=== PATIENT | female | born 1995 | race Caucasian/White ===

== ENCOUNTER 2016-11-29 11:53 | Emergency (ER) | payer SELFPAY ==
[~2016-11-29] VITALS: Ht 157.5 cm; Wt 48.2 kg
[~2016-11-29 11:53] MED LIST: REGLAN10 MG PO; TRAZODONE HCL50 MG PO
[2016-11-29 12:10] VITALS: BP 118/72
[2016-11-29] MEDS ORDERED: BUPROPION XL150 MG PO (13:53)
== END 2016-11-29 15:07 | disposition left against medical advice (07) ==
LOC: EME 11:53
DX: O99.89 Other specified diseases and conditions complicating pregnancy, childbirth and the puerperium (principal); M25.571 Pain in right ankle and joints of right foot; M25.471 Effusion, right ankle; Z91.81 History of falling; O99.332 Smoking (tobacco) complicating pregnancy, second trimester; Z3A.27 27 weeks gestation of pregnancy; F17.200 Nicotine dependence, unspecified, uncomplicated

== ENCOUNTER 2017-07-23 22:21 | Emergency (ER) | payer SELFPAY ==
[~2017-07-23] VITALS: Ht 157.5 cm; Wt 46.9 kg
[~2017-07-23 22:21] MED LIST changes: +BUPROPION XL150 MG PO
[2017-07-23 23:00] VITALS: BP 144/97
== END 2017-07-23 23:06 | disposition left against medical advice (07) ==
LOC: EME → EDBD 22:21 → EME 23:06
DX: Z53.21 Procedure and treatment not carried out due to patient leaving prior to being seen by health care provider (principal)
CPT/HCPCS: 99281; 99282